=== PATIENT | female | born 1955 | race Caucasian/White ===

== ENCOUNTER 2017-05-02 06:56 | Inpatient (IN) | payer SELFPAY ==
[~2017-05-02] VITALS: Ht 160 cm; Wt 69.9 kg
[~2017-05-02 06:56] MED LIST: IBUPROFEN100 MG/5 M PO; MOTRIN400 MG PO
[2017-05-02 07:51] LABS: HEMATOCRIT 28.8 % (36.0-46.0); MCH 24.7 PG (29.0-34.0); MCHC 31.3 G/DL (30.0-36.0); MCV 78.9 FL (83-99); PLATELET COUNT 542 K/uL (156-360); RBC DIS.WIDTH-CV 16.3 % (11.8-14.6); RBC DIS.WIDTH-SD 46.4 % (39-53); RED BLOOD COUNT 3.65 M/uL (3.80-5.20); WHITE BLOOD COUNT 14.9 K/uL (4.1-10.2)
[2017-05-02 08:00] LABS: ALBUMIN 3.6 g/dL (3.2-4.8); CHLORIDE 101 mEq/L (99-109); POTASSIUM 4.6 mEq/L (3.7-5.4)
[2017-05-02 08:01] LABS: SODIUM 135 mEq/L (136-147)
[2017-05-02 08:03] LABS: GLUCOSE 160 mg/dL (70-99)
[2017-05-02 08:05] LABS: TOTAL BILIRUBIN 0.7 mg/dL (0.0-1.0)
[2017-05-02 08:06] LABS: ALKALINE PHOSPHATASE 117 IU/L (3-129)
[2017-05-02 08:07] LABS: CREATININE 0.9 mg/dL (0.6-1.3); GFR ESTIMATE (CALCULATED) > 59 mL/min/
[2017-05-02 08:08] LABS: AST (GOT) 18 IU/L (2-34); UREA NITROGEN (BUN) 16 mg/dL (9-23)
[2017-05-02 08:09] LABS: ALT (GPT) 8 IU/L (3-49)
[2017-05-02 09:39] LABS: APPEARANCE CLEAR ((CLEAR)); BILIRUBIN NEGATIVE; BLOOD MODERATE; COLOR YELLOW ((YELLOW)); GLUCOSE (STRIP) 50; KETONES NEGATIVE; LEUKOCYTES NEGATIVE; NITRITE NEGATIVE; PROTEIN (STRIP) 30; SPECIFIC GRAVITY 1.041 (1.000-1.030)
[2017-05-02 09:49] LABS: BACTERIA NONE SEEN /HPF; EPITHELIAL CELLS RARE /HPF; MUCUS TRACE /LPF; UCUL ADDED? NO; WHITE BLOOD CELLS 0-5 /HPF (0-5)
[2017-05-02 12:47] VITALS: BP 164/84
[2017-05-02 15:53] VITALS: BP 172/84
[2017-05-02 20:20] VITALS: BP 145/75
[2017-05-02 21:20] VITALS: BP 150/75
[2017-05-03] VITALS (8 sets, daily range): BP systolic 145–200; BP diastolic 80–105
[2017-05-03 07:43] LABS: HEMATOCRIT 25.3 % (36.0-46.0); HEMOGLOBIN 7.8 G/DL (11.9-15.5); MCH 24.6 PG (29.0-34.0); MCHC 30.8 G/DL (30.0-36.0); MCV 79.8 FL (83-99); PLATELET COUNT 512 K/uL (156-360); RBC DIS.WIDTH-CV 16.5 % (11.8-14.6); RBC DIS.WIDTH-SD 47.9 % (39-53); RED BLOOD COUNT 3.17 M/uL (3.80-5.20); WHITE BLOOD COUNT 16.9 K/uL (4.1-10.2)
[2017-05-03 08:05] LABS: CHLORIDE 104 MEQ/L (99-109); CREATININE 0.7 MG/DL (0.6-1.3); GFR ESTIMATE (CALCULATED) > 59 mL/min/; POTASSIUM 4.4 MEQ/L (3.7-5.4); SODIUM 137 MEQ/L (136-147); UREA NITROGEN (BUN) 11 mg/dL (9-23)
[2017-05-03 08:09] LABS: GLUCOSE 98 mg/dL (70-99)
[2017-05-03 09:57] LABS: FERRITIN 101 NG/ML (10-291)
[2017-05-03 10:18] LABS: IRON < 10 MCG/DL (35-150); TRANSFERRIN SATUR. 5 % (20-55)
[2017-05-03 11:16] LABS: FOLIC ACID (FOLATE) 8.3 NG/ML (5.0-22.0)
[2017-05-04] VITALS (7 sets, daily range): BP systolic 152–184; BP diastolic 72–98
[2017-05-04 05:42] LABS: HEMATOCRIT 26.9 % (36.0-46.0); HEMOGLOBIN 8.7 G/DL (11.9-15.5); MCH 25.1 PG (29.0-34.0); MCHC 32.3 G/DL (30.0-36.0); MCV 77.7 FL (83-99); PLATELET COUNT 545 K/uL (156-360); RBC DIS.WIDTH-CV 15.8 % (11.8-14.6); RBC DIS.WIDTH-SD 44.6 % (39-53); RED BLOOD COUNT 3.46 M/uL (3.80-5.20); WHITE BLOOD COUNT 14.9 K/uL (4.1-10.2)
[2017-05-04 06:07] LABS: CHLORIDE 104 MEQ/L (99-109); CREATININE 0.8 MG/DL (0.6-1.3); GFR ESTIMATE (CALCULATED) > 59 mL/min/; GLUCOSE 110 mg/dL (70-99); POTASSIUM 4.4 MEQ/L (3.7-5.4); SODIUM 135 MEQ/L (136-147); UREA NITROGEN (BUN) 11 mg/dL (9-23)
[2017-05-05 04:09] VITALS: BP 158/70
[2017-05-05 05:22] LABS: HEMATOCRIT 29.2 % (36.0-46.0); HEMOGLOBIN 9.5 G/DL (11.9-15.5); MCH 24.9 PG (29.0-34.0); MCHC 32.5 G/DL (30.0-36.0); MCV 76.6 FL (83-99); PLATELET COUNT 621 K/uL (156-360); RBC DIS.WIDTH-CV 16.7 % (11.8-14.6); RBC DIS.WIDTH-SD 46.2 % (39-53); RED BLOOD COUNT 3.81 M/uL (3.80-5.20); WHITE BLOOD COUNT 15.9 K/uL (4.1-10.2)
[2017-05-05 05:47] LABS: ALBUMIN 2.6 G/DL (3.2-4.8); ALKALINE PHOSPHATASE 88 IU/L (3-129); ALT (GPT) 7 IU/L (3-49); AST (GOT) 12 IU/L (2-34); CHLORIDE 94 MEQ/L (99-109); CREATININE 0.5 MG/DL (0.6-1.3); GFR ESTIMATE (CALCULATED) > 59 mL/min/; GLUCOSE 92 mg/dL (70-99); POTASSIUM 3.6 MEQ/L (3.7-5.4); SODIUM 130 MEQ/L (136-147); TOTAL BILIRUBIN 0.7 MG/DL (0.0-1.0); TOTAL PROTEIN 5.3 G/DL (6.4-8.3); UREA NITROGEN (BUN) 10 mg/dL (9-23)
[2017-05-05 08:40] VITALS: BP 168/96
[2017-05-05 11:04] VITALS: BP 174/92
[2017-05-05 15:40] VITALS: BP 164/96
[2017-05-05 20:47] VITALS: BP 160/110
[2017-05-05 23:58] VITALS: BP 175/116
[2017-05-06 03:52] VITALS: BP 141/92
[2017-05-06 05:46] LABS: BASOPHIL (%) 0.3 % (0-1); EOSINOPHIL (%) 0.7 % (0-5); EOSINOPHIL COUNT 0.1 K/uL (0-0.3); HEMATOCRIT 31.1 % (36.0-46.0); HEMOGLOBIN 10.2 G/DL (11.9-15.5); IMMATURE GRANULOCYTE (%) 1.9 % (0.0-0.7); LYMPHOCYTE (%) 11.5 % (15-42); LYMPHOCYTE COUNT 1.6 K/uL (1.0-2.8); MCH 25.1 PG (29.0-34.0); MCHC 32.8 G/DL (30.0-36.0); MCV 76.4 FL (83-99); MONOCYTE (%) 5.4 % (3-12); MONOCYTE COUNT 0.7 K/uL (0-0.8); NEUTROPHIL (%) 80.2 % (45-76); PLATELET COUNT 675 K/uL (156-360); RBC DIS.WIDTH-CV 17.2 % (11.8-14.6); RBC DIS.WIDTH-SD 47.6 % (39-53); RED BLOOD COUNT 4.07 M/uL (3.80-5.20); WHITE BLOOD COUNT 13.7 K/uL (4.1-10.2)
[2017-05-06 06:08] LABS: CHLORIDE 95 MEQ/L (99-109); CREATININE 0.6 MG/DL (0.6-1.3); GFR ESTIMATE (CALCULATED) > 59 mL/min/; GLUCOSE 94 mg/dL (70-99); POTASSIUM 3.7 MEQ/L (3.7-5.4); SODIUM 135 MEQ/L (136-147); UREA NITROGEN (BUN) 15 mg/dL (9-23)
[2017-05-06 07:15] VITALS: BP 158/82
[2017-05-06 12:40] VITALS: BP 149/78
[2017-05-06 16:56] VITALS: BP 120/72
[2017-05-06 19:05] VITALS: BP 139/83
[2017-05-06 23:15] VITALS: BP 121/87
[2017-05-07] VITALS (7 sets, daily range): BP systolic 126–164; BP diastolic 78–101
[2017-05-07 05:43] LABS: BASOPHIL (%) 0.4 % (0-1); EOSINOPHIL (%) 1.9 % (0-5); EOSINOPHIL COUNT 0.2 K/uL (0-0.3); HEMOGLOBIN 9.1 G/DL (11.9-15.5); IMMATURE GRANULOCYTE (%) 3.9 % (0.0-0.7); LYMPHOCYTE (%) 14.6 % (15-42); LYMPHOCYTE COUNT 1.6 K/uL (1.0-2.8); MCH 24.8 PG (29.0-34.0); MCHC 32.5 G/DL (30.0-36.0); MCV 76.3 FL (83-99); MONOCYTE (%) 6.4 % (3-12); MONOCYTE COUNT 0.7 K/uL (0-0.8); NEUTROPHIL (%) 72.8 % (45-76); PLATELET COUNT 598 K/uL (156-360); RBC DIS.WIDTH-CV 17.4 % (11.8-14.6); RBC DIS.WIDTH-SD 48.3 % (39-53); RED BLOOD COUNT 3.67 M/uL (3.80-5.20)
[2017-05-07 06:02] LABS: CHLORIDE 101 MEQ/L (99-109); CREATININE 0.6 MG/DL (0.6-1.3); GFR ESTIMATE (CALCULATED) > 59 mL/min/; GLUCOSE 127 mg/dL (70-99); POTASSIUM 3.3 MEQ/L (3.7-5.4); SODIUM 135 MEQ/L (136-147); UREA NITROGEN (BUN) 10 mg/dL (9-23)
[2017-05-08 00:03] VITALS: BP 163/82
[2017-05-08 04:17] VITALS: BP 157/95
[2017-05-08 07:02] LABS: HEMATOCRIT 29.5 % (36.0-46.0); HEMOGLOBIN 9.3 G/DL (11.9-15.5); MCH 24.7 PG (29.0-34.0); MCHC 31.5 G/DL (30.0-36.0); MCV 78.5 FL (83-99); PLATELET COUNT 633 K/uL (156-360); RBC DIS.WIDTH-CV 18.2 % (11.8-14.6); RED BLOOD COUNT 3.76 M/uL (3.80-5.20); WHITE BLOOD COUNT 11.8 K/uL (4.1-10.2)
[2017-05-08 07:18] VITALS: BP 167/95
[2017-05-08 07:29] LABS: CHLORIDE 105 MEQ/L (99-109); CREATININE 0.6 MG/DL (0.6-1.3); GFR ESTIMATE (CALCULATED) > 59 mL/min/; GLUCOSE 100 mg/dL (70-99); SODIUM 137 MEQ/L (136-147); UREA NITROGEN (BUN) 8 mg/dL (9-23)
[2017-05-08 07:31] LABS: ABS NEUTROPHIL COUNT 8.4; ANISOCYTOSIS 1+; BAND NEUTROPHILS 3.5 % (0-8.0); EOSINOPHIL ABS CT 0.6; EOSINOPHILS 5.2 % (0-5.0); HYPOCHROMASIA 2+; LYMPHOCYTES 13.1 % (15.0-45.0); METAMYELOCYTES 1.7 %; MYELOCYTES 1.7 %; PLAT.SUFFICIENCY INCREASED; SEG.NEUTROPHILS 67.8 % (46.0-76.0)
[2017-05-08 11:35] VITALS: BP 175/95
[2017-05-08 15:26] VITALS: BP 162/92
[2017-05-08 22:16] VITALS: BP 172/102
[2017-05-09 06:26] LABS: HEMATOCRIT 29.7 % (36.0-46.0); HEMOGLOBIN 9.5 G/DL (11.9-15.5); MCH 25.3 PG (29.0-34.0); MCV 79.2 FL (83-99); PLATELET COUNT 605 K/uL (156-360); RBC DIS.WIDTH-CV 18.9 % (11.8-14.6); RBC DIS.WIDTH-SD 53.7 % (39-53); RED BLOOD COUNT 3.75 M/uL (3.80-5.20); WHITE BLOOD COUNT 12.8 K/uL (4.1-10.2)
[2017-05-09 06:58] LABS: ALBUMIN 2.7 G/DL (3.2-4.8); ALT (GPT) 9 IU/L (3-49); AST (GOT) 16 IU/L (2-34); CHLORIDE 99 MEQ/L (99-109); CREATININE 0.5 MG/DL (0.6-1.3); GFR ESTIMATE (CALCULATED) > 59 mL/min/; GLUCOSE 91 mg/dL (70-99); MAGNESIUM 1.7 mg/dl (1.3-2.7); PHOSPHORUS 3.6 mg/dL (2.5-4.9); SODIUM 135 MEQ/L (136-147); TOTAL PROTEIN 5.5 G/DL (6.4-8.3); UREA NITROGEN (BUN) 6 mg/dL (9-23)
[2017-05-09 06:59] LABS: ABS NEUTROPHIL COUNT 9.8; ANISOCYTOSIS 1+; BAND NEUTROPHILS 3.6 % (0-8.0); EOSINOPHIL ABS CT 0.9; EOSINOPHILS 7.1 % (0-5.0); HYPOCHROMASIA 1+; LYMPHOCYTES 12.5 % (15.0-45.0); MONOCYTES 3.6 % (0-9.0); PLAT.SUFFICIENCY INCREASED; POIKILOCYTOSIS 1+; POLYCHROMASIA 1+; SEG.NEUTROPHILS 73.2 % (46.0-76.0)
[2017-05-09 07:03] VITALS: BP 198/112
[2017-05-09 07:06] LABS: ALKALINE PHOSPHATASE 122 IU/L (3-129); TOTAL BILIRUBIN 0.4 MG/DL (0.0-1.0)
[2017-05-09 08:31] VITALS: BP 156/86
[2017-05-09 15:48] VITALS: BP 131/81
[2017-05-09 19:07] LABS: APPEARANCE SL.HAZY ((CLEAR)); BILIRUBIN NEGATIVE; BLOOD SMALL; COLOR YELLOW ((YELLOW)); GLUCOSE (STRIP) 50; KETONES 20; LEUKOCYTES NEGATIVE; NITRITE NEGATIVE; PROTEIN (STRIP) NEGATIVE; SPECIFIC GRAVITY 1.031 (1.000-1.030); UROBILINOGEN 0.2 MG/DL (0.2-1.0)
[2017-05-09 19:16] LABS: BACTERIA NONE SEEN /HPF; EPITHELIAL CELLS 1+ /HPF; MUCUS TRACE /LPF; RED BLOOD CELLS 0-5 /HPF (0-5); UCUL ADDED? NO; WHITE BLOOD CELLS 0-5 /HPF (0-5)
[2017-05-09 23:54] VITALS: BP 160/80
[2017-05-10 06:18] LABS: HEMATOCRIT 31.2 % (36.0-46.0); MCH 25.2 PG (29.0-34.0); MCHC 32.1 G/DL (30.0-36.0); MCV 78.6 FL (83-99); PLATELET COUNT 557 K/uL (156-360); RBC DIS.WIDTH-CV 18.8 % (11.8-14.6); RBC DIS.WIDTH-SD 52.9 % (39-53); RED BLOOD COUNT 3.97 M/uL (3.80-5.20); WHITE BLOOD COUNT 12.8 K/uL (4.1-10.2)
[2017-05-10 07:47] VITALS: BP 123/84
[2017-05-10] MEDS ORDERED: NORCO 5/3251 TABLET PO (10:07)
[2017-05-10] MEDS ORDERED: AMLODIPINE BESY10 MG PO (11:32)
[2017-05-10] MEDS ORDERED: LOPRESSOR25 MG PO (11:32)
== END 2017-05-10 12:55 | disposition home or self-care (01) | DRG 329 ==
LOC: EME 06:56 → EDOF 10:09 → 2EAST 10:09 → ENRESERV 10:11 → EDOF 10:14 → ENRESERV 10:16 → 2EAST 12:22 → ENRESERV 05-03 18:04 → 4EAST 05-03 19:08 → ENRESERV 05-07 19:36 → 2EAST 05-07 21:29
PROVIDERS: Anesthesiology; Internal Medicine; Physician Assistant; Physician Assistant Surgical; Surgery
DX: C18.4 Malignant neoplasm of transverse colon (principal); J18.9 Pneumonia, unspecified organism; R14.0 Abdominal distension (gaseous); E87.6 Hypokalemia; D50.9 Iron deficiency anemia, unspecified; K59.00 Constipation, unspecified; R63.0 Anorexia; K92.2 Gastrointestinal hemorrhage, unspecified; F17.200 Nicotine dependence, unspecified, uncomplicated; I10 Essential (primary) hypertension; I70.0 Atherosclerosis of aorta; M16.11 Unilateral primary osteoarthritis, right hip; M47.816 Spondylosis without myelopathy or radiculopathy, lumbar region; I25.10 Atherosclerotic heart disease of native coronary artery without angina pectoris; R59.0 Localized enlarged lymph nodes; J21.9 Acute bronchiolitis, unspecified; J06.9 Acute upper respiratory infection, unspecified; Z68.33 Body mass index [BMI] 33.0-33.9, adult; Z80.3 Family history of malignant neoplasm of breast
CPT/HCPCS: 71045; 71046; 71250; 74177; 80048; 80053; 81003; 82272; 82607; 82728; 82746; 83540; 83605; 83735; 84100; 84466; 85025; 85027; 86850; 86900; 86901; 86920; 87040; 87449; 87502; 87641; 88309; 93005; 94799; 99281; 99285; J0131; J0330; J0360; J0690; J1100; J1170; J1650; J1956; J2250; J2270; J2405; J3010; J3475; J7030; J7042; J7120; P9016; S0074

== ENCOUNTER → 2017-07-08 | Outpatient (CLI) | payer OTHER ==
[~2017-07-08] MED LIST changes: +AMLODIPINE BESY10 MG PO; +LOPRESSOR25 MG PO; +NORCO 5/3251 TABLET PO
== END | disposition home or self-care (01) ==
LOC: RAD 08:44
DX: I77.810 Thoracic aortic ectasia (principal); Z87.891 Personal history of nicotine dependence
CPT/HCPCS: 71250